=== PATIENT | male | born 1980 | race Caucasian/White ===

== ENCOUNTER 2019-02-08 08:56 | Emergency (ER) | payer OTHER, SELFPAY ==
[2019-02-08 09:06] VITALS: BP 137/72; PULSE 97; RESP 18; TEMP 38.6; O2SAT 97
[2019-02-08 09:15] VITALS: TEMP 38.6
[2019-02-08] MEDS: ACETAMINOPHEN 325 MG TABLET 650 MG PO (09:15)
[2019-02-08 09:43] VITALS: TEMP 36.8
--- NOTE | 2019-02-08 10:18 | ED.URI ---
HPI - URI/Sore Throat General Chief Complaint: Upper Respiratory Symptoms Stated Complaint: BRONCHITIS Time Seen by Provider: 02/08/19 10:07 Source: patient Mode of arrival: ambulatory Limitations: no limitations History of Present Illness HPI Narrative: Patient is a 38-year-old male who presents with body aches fever ongoing for the last 3 days. He has cough but nonproductive. He denies any shortness of breath no chest pain. No sore throat. He has had shakes and chills. Influenza positive Related Data Allergies Allergy/AdvReac Type Severity Reaction Status Date / Time cat dander [CAT DANDER] Allergy Intermediate ITCHING, Unverified 02/27/18 12:51 SOME SOB Review of Systems Review of Systems ROS Unobtainable: All systems reviewed & are unremarkable except as noted in HPI and below Constitutional Reports chills, Reports fatigue and Reports fever(s) Eyes Denies change in vision, Denies eye discharge, Denies irritation and Denies loss of vision Cardiovascular Denies chest pain, Denies irregular heart rhythm, Denies lightheadedness, Denies palpitations, Reports dyspnea and Denies orthopnea Respiratory Reports cough and Reports dyspnea Gastrointestinal Gastrointestinal: Denies abdominal pain, Denies change in bowel habits, Denies diarrhea, Denies nausea and Denies vomiting Genitourinary Denies hematuria, Denies flank pain, Denies urinary incontinence and Denies urinary urgency Musculoskeletal Denies back pain, Denies muscle weakness, Denies numbness and Denies tingling Integumentary/Breasts Denies pruritus, Denies erythema, Denies rash and Denies wounds Neurologic Denies loss of vision, Denies numbness and Denies tingling Endocrine Reports fatigue and Denies palpitations PFSH Medical History Patient denies significant medical history (Acute) Social History Smoking Status: Never smoker Social History Smoking Status: Never smoker Exam Initial Vital Signs Initial Vital Signs: Vital Signs Temperature 101.5 F H 02/08/19 09:06 Pulse Rate 97 H 02/08/19 09:06 Respiratory Rate 18 02/08/19 09:06 Blood Pressure 137/72 02/08/19 09:06 Pulse Oximetry 97 02/08/19 09:06 GENERAL: Alert young male no acute distress HEENT: Head atraumatic,EOMI, pupils reactive, face symmetric, moist mucous membranes CARDIOVASCULAR: Regular rate and rhythm without murmurs, rubs or gallops. RESPIRATORY: Breath sounds equal bilaterally, no wheezes rales or rhonchi. ABDOMEN: Soft, nontender. Normoactive bowel sounds all 4 quadrants. No guarding or rebound. EXTREMITIES: Normal range of motion, no clubbing or edema. Neurovascularly intact NEUROLOGICAL: Alert and oriented x4.Normal gait and speech. SKIN: Warm, dry, no laceration, no petechiae, no rashes or lesions. Course Orders Ordered: ED Orders 02/08/19 09:13 FLU A and B [Influenza A and B by PCR Rapid] Stat Discontinued Medications Acetaminophen (Tylenol) 650 mg PO NOW ONE Stop: 02/08/19 09:12 Last Admin: 02/08/19 09:15 Dose: 650 mg Vital Signs - 8 hr 02/08/19 09:06 02/08/19 09:15 02/08/19 09:43 Temperature 101.5 F H 101.5 F H 98.2 F Pulse Rate 97 H Respiratory Rate 18 Blood Pressure 137/72 Blood Pressure [Left Arm] Pulse Oximetry 97 02/08/19 10:45 Temperature 98.2 F Pulse Rate 88 Respiratory Rate 20 Blood Pressure Blood Pressure [Left Arm] 120/88 Pulse Oximetry 98 MDM - URI/Sore Throat Lab Data Attestation: I reviewed the patient's lab results. Lab Results 02/08/19 Range/Units 09:13 Influenza A & B (PCR) Positive, type a A (Negative) Discharge Plan Departure Patient Disposition: Home Clinical Impression: Influenza Discharge Date/Time: 02/08/19 11:07 Interventions: ED Discharge Assessment Last Done: 02/08/19 11:06 Instructions: DI for Influenza -- Adult Activity Restrictions/Additional Instructions: *You have been diagnosed with influenza *What to do: Fever control, increase fluids. He cannot go back to work until you have been afebrile for 24 hr. *Continue to take medications as directed Motrin 800 mg every 8 hr if needed for fever with food Tylenol 650 mg every 4-6 hours if needed for fever *Follow up with your primary care provider in 2-3 days *Return to ER if you should have decreased oral intake, increasing shortness of breath or any new, worsening or concerning symptoms Referrals: [facility] [Provider Group] Stand Alone Forms: Work Release Note, Work/School Release
[2019-02-08 10:45] VITALS: BP 120/88; PULSE 88; RESP 20; TEMP 36.8; O2SAT 98
== END 2019-02-08 11:07 | disposition home or self-care (01) ==
PROVIDERS: Emergency Provider Emergency Medicine
DX: J10.1 Influenza due to other identified influenza virus with other respiratory manifestations (principal)
CPT/HCPCS: 87400; 99282